=== PATIENT | female | born 1990 | race Caucasian/White ===

== ENCOUNTER 2017-06-14 19:19 | Inpatient (IN) | payer OTHER ==
[~2017-06-14] VITALS: Ht 167.6 cm; Wt 78.9 kg
[~2017-06-14 19:19] MED LIST: CITRANATAL HAR1 EACH PO; MOTRIN800 MG PO
[2017-06-14 20:00] LABS: ABSOLUTE BASOPHIL COUNT 0 /CUMM (0.0-0.2); ABSOLUTE EOSINOPHIL COUNT 0.1 /CUMM (0.0-0.7); ABSOLUTE LYMPH COUNT 3.5 /CUMM (1.2-3.4); ABSOLUTE MONOCYTE COUNT 1.1 /CUMM (0.10-0.60); BASOPHIL % 0.3 % (0.0-2.0); EOSINOPHIL % 0.5 % (0-5); HEMATOCRIT 36.5 % (37-47); MEAN CORPUSCULAR HGB 33.1 PG (27.0-31.0); MEAN CORPUSCULAR HGB CONC 34.4 G/DL (33.0-37.0); MEAN PLATELET VOLUME 7.8 FL (7.4-10.4); PLATELET COUNT 428 /CUMM (130-400); RBC DISTRIBUTION WIDTH 14.5 % (11.5-14.5); WHITE BLOOD CELL COUNT 16.7 /CUMM (4.8-10.8)
--- NOTE | 2017-06-14 21:59 | PN- Obstetrical ---
Subjective Subjective: DOES NOT FEEL CTX Objective Last 24 Hrs of Vital Signs/I&O PER PERIGEN Physical Exam: PE THIN IN NAD ABD SOFT NT FUNDUS SOFT NT EXT - EDEMA Obstetric Exam Dilation (cm): 2 Effacement (%): 50 Station: 0 Membranes: intact Fluid: unknown Multiple Gestation? No Contractions: Q 6 MINUTES Assessment/Plan Assessment/Plan ASSESS 41 WEEKS PLAN MISOPROSTIL
--- NOTE | 2017-06-15 09:19 | PN- Obstetrical ---
Subjective Subjective: Complaint of pain Objective Last 24 Hrs of Vital Signs/I&O Intake & Output 06/15 1600 06/15 0800 06/15 0000 Intake Total Output Total Balance Patient 174 lb Weight Physical Exam: Thin white female in no apparent distress HEENT anicteric Lungs clear Abdomen soft nontender estimated weight 3600 g Extremities negative edema negative Homans Obstetric Exam Dilation (cm): 3 Effacement (%): 90 Station: 0 Membranes: AROM Fluid: clear Multiple Gestation? No Contractions: Every 3-4 minutes Assessment/Plan Assessment/Plan Assessment is a 41 week Plan Pitocin induction patient has been counseled regarding risks and benefits Pitocin uses of nitrous oxide was pain medication and epidural
--- NOTE | 2017-06-15 15:32 | Labor & Delivery Summary ---
Delivery Summary Vaginal Delivery: Vaginal: vertex Episiotomy/Lacerations: Episiotomy/Lacerations: none Placenta: Placenta: spontanteous, normal, 3 vessel Anesthesia: block Additional Comments: OVER INTACT PERINEUM SUCTIONED WITH BULB UNTIL CLEAR PLACENTA BY CCT INTACT .THERE WAS A THREE VESSEL
[2017-06-15] MEDS ORDERED: DOCUSATE SODIU100 M3 PO (18:06)
[2017-06-15] MEDS ORDERED: IBUPROFEN800 M1 PO (18:06)
--- NOTE | 2017-06-16 07:49 | PN- Post Delivery/GYN ---
See Addendum Subjective Subjective: NO COMPLAINTS ABD SOFT NT INCISION DRESSING IN PLACE FUNDUS FIRM NT EXT -EDEMA -HOMANS LOCHIA MINIMAL Objective Last 24 Hrs of Vital Signs/I&O PER CHART Assessment/Plan Assessment/Plan ASSESS S/P C/S PLAN LOVENOX AMBULATION ADVANCE DIET
[2017-06-16 08:06] LABS: ABSOLUTE BASOPHIL COUNT 0.1 /CUMM (0.0-0.2); ABSOLUTE EOSINOPHIL COUNT 0.2 /CUMM (0.0-0.7); ABSOLUTE GRANULOCYTE CT 17.6 /CUMM (1.4-6.5); ABSOLUTE LYMPH COUNT 3.9 /CUMM (1.2-3.4); ABSOLUTE MONOCYTE COUNT 1.5 /CUMM (0.10-0.60); BASOPHIL % 0.5 % (0.0-2.0); EOSINOPHIL % 0.7 % (0-5); GRANULOCYTE % 75.6 % (42.2-75.2); HEMATOCRIT 35.2 % (37-47); MEAN CORPUSCULAR HGB 32.9 PG (27.0-31.0); MEAN CORPUSCULAR HGB CONC 33.8 G/DL (33.0-37.0); MEAN CORPUSCULAR VOLUME 97.3 FL (81.0-99.0); MEAN PLATELET VOLUME 8.2 FL (7.4-10.4); PLATELET COUNT 375 /CUMM (130-400); RBC DISTRIBUTION WIDTH 14.5 % (11.5-14.5); RED BLOOD CELL CT 3.61 /CUMM (4.20-5.40); WHITE BLOOD CELL COUNT 23.3 /CUMM (4.8-10.8)
== END 2017-06-16 15:40 | DRG 560 ==
LOC: GNO 19:19
PROVIDERS: Specialist
PROC: 3E0P7VZ Introduction of Hormone into Female Reproductive, Via Natural or Artificial Opening (ICD-10-PCS; 2017-06-14)
PROC: 10E0XZZ Delivery of Products of Conception, External Approach (ICD-10-PCS; principal; 2017-06-15)
PROC: 3E033VJ Introduction of Other Hormone into Peripheral Vein, Percutaneous Approach (ICD-10-PCS; 2017-06-15)
DX: O48.0 Post-term pregnancy (principal); Z3A.41 41 weeks gestation of pregnancy; Z37.0 Single live birth
CPT/HCPCS: GNOP; GNOS; 80307; 81001; 87086; J0595; J1200; J7120